=== PATIENT | female | born 1990 | race Caucasian/White ===

== ENCOUNTER 2016-05-19 09:57 | Outpatient (CLI) | payer MEDICAID | END 2016-05-19 23:59 | DX: R63.5 Abnormal weight gain (principal) ==

== ENCOUNTER 2016-06-07 | Outpatient (CLI) | payer MEDICAID | END 2016-06-07 07:26 | disposition critical access hospital (66) | DX: M54.5 Low back pain (principal) | CPT/HCPCS: A0425; A0427 ==

== ENCOUNTER 2016-06-07 08:03 | Emergency (ER) | payer MEDICAID ==
[2016-06-07] MEDS ORDERED: LIDOCAINE PATCH 5% TOP STA (08:19)
[2016-06-07] MEDS ORDERED: CYCLOBENZAPRINE 10 MG TABLET PO STA (08:19)
[2016-06-07] MEDS ORDERED: KETOROLAC 60 MG/2 ML VIAL IVP STA (08:19)
[2016-06-07] MEDS ORDERED: LIDOCAINE PATCH 5% TOP ONE (08:21)
[2016-06-07] MEDS ORDERED: CYCLOBENZAPRINE 10 MG TABLET PO ONE (08:21)
[2016-06-07] MEDS ORDERED: KETOROLAC 30 MG/ML VIAL ONE (08:21)
== END 2016-06-07 10:23 | disposition home or self-care (01) ==
DX: M54.5 Low back pain (principal)
CPT/HCPCS: 96374; 99284; A9270

== ENCOUNTER 2018-08-09 18:54 | Outpatient (CLI) | payer MEDICAID | END 2018-08-09 18:55 | disposition short-term general hospital (02) | LOC: EMS 18:54 | PROVIDERS: ATTEND Surgery | DX: R07.9 Chest pain, unspecified (principal); H53.9 Unspecified visual disturbance; R73.09 Other abnormal glucose | CPT/HCPCS: A0425; A0427; A0999 ==

== ENCOUNTER 2018-08-29 19:52 | Emergency (ER) | payer MEDICAID ==
--- NOTE | 2018-08-29 20:26 | ED Physician Documentation ---
History of Present Illness - Stated complaint Stated Complaint: LT KNEE INJURY - Chief complaint Chief Complaint: Trauma Ext - History obtained from History obtained from: Patient - History of Present Illness Timing: Prior to arrival - Additonal information Additional information: Patient is a previously healthy 27-year-old female presenting with isolated left knee pain after doing gymnastics with her children prior to arrival. Patient reports that she did a backwards cartwheel and while her legs were in the area she felt a pop and pain to the left knee. Patient also reports swelling to this area. Patient denies hearing a pop or feeling pain with her legs planted prior to the activity. Patient also denies significant twisting motion. However, patient was unable to bear weight following this episode. She denies other areas of pain to the leg as well as any change in sensation, strength, range of motion to the left lower extremity except for flexion of the left knee. No other injuries. No other improving or worsening factors noted. 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 - Present Medications Home Medications: Ambulatory Orders Medication Instructions Recorded Confirmed No Known Home Medications 08/29/18 08/29/18 - Allergies Allergies/Adverse Reactions: Allergies Allergy/AdvReac Type Severity Reaction Status Date / Time No Known Drug Allergies Allergy Verified 08/29/18 20:01 - Social History Does the pt smoke?: No Smoking Status: Never smoker - Immunizations Immunizations are current?: Yes PD ED PE NORMAL - Vitals Vital signs reviewed: Yes - General General: Alert and oriented X 3, No acute distress, Well developed/nourished - HEENT HEENT: Atraumatic - Cardiac Cardiac: Strong equal pulses (Cap refill brisk) - Respiratory Respiratory: No respiratory distress - Derm Derm: Normal color, Warm and dry, No rash - Extremities Extremities: No deformity, No tenderness to palpate (Pain with palpation diffusely over anterior left knee with no significant laxity felt on varus/valgus strain or anterior/posterior drawer test. Patella appropriately aligned.No other bony tenderness or abnormalities noted to left lower extremity throughout.), Other (Faintly appreciable swelling to the left knee as compared to the right). No: Normal ROM s pain (Limited left knee flexion given pain.) - Neuro Neuro: No motor deficit, No sensory deficit - Psych Psych: Normal mood, Normal affect Results - Vitals Vitals: Vital Signs - 24 hr 08/29/18 08/29/18 19:59 21:23 Temperature 35.9 C L 36.5 C Heart Rate 93 81 Respiratory 14 16 Rate Blood Pressure 122/79 129/82 H O2 Saturation 100 100 Oxygen O2 Source Room air PD MEDICAL DECISION MAKING - ED course Complexity details: reviewed results, re-evaluated patient, considered differential, d/w patient ED course: Patient presenting with isolated left knee pain and minimal joint swelling after low impact trauma from doing gymnastics.Have lower suspicion for fracture or dislocation based on exam and mechanism. However, will obtain x-rays to further evaluate. Additionally, have lower suspicion for meniscus or ligamentous injury given lack of twisting motion or laxity found on exam. However, if patient still has significant concern for such, can treat clinically with knee immobilizer, nonweightbearing status, crutches, and orthopedic follow-up. Given traumatic mechanism and physical exam findings also have lower suspicion for joint infection. Do not find evidence of overlying cellulitis, laceration, abrasion, or ecchymosis. Have low suspicion for bursitis. Feel most likely muscular skeletal injury or strain/sprain which could be treated supportively.Patient requested pain medication and Toradol provided. X-rays returned unremarkable without effusion, dislocation, or fracture. Discussed results and recommendations with patient at this time feel supportive cares are most appropriate, but also advised her if symptoms persist to follow-up with her primary care physician or orthopedic surgery for further evaluation. Departure - Departure Disposition: 01 Home, Self Care Clinical Impression: Knee injury Qualifiers: Encounter type: initial encounter Laterality: left Qualified Code(s): S89.92XA - Unspecified injury of left lower leg, initial encounter Condition: Good Instructions: ED Sprain Knee Follow-Up: SONIA BAXTER MD [Primary Care Provider] - Within 3 Days Comments: Recommend avoidance of strenuous exercise until all symptoms have resolved. May use elevation, ice, ibuprofen/Tylenol to help reduce swelling and pain. Follow- up with primary care physician in the next 2 to 3 days and return to ED sooner if experience new injury, worsening symptoms, or other concerns.
[2018-08-29] MEDS ORDERED: KETOROLAC 60 MG/2 ML VIAL IM STA (21:12)
--- NOTE | 2018-08-29 21:18 | XRAY Report ---
Reason: left knee pain after hearing pop while doing cartw Procedure Date: 08/29/2018 Accession Number: [id number] / [id number] Procedure: XR - Knee 4 View LT CPT Code: FULL RESULT: EXAM: LEFT KNEE RADIOGRAPHY EXAM DATE: 08/29/2018 08:43 PM. CLINICAL HISTORY: Left knee pain after hearing pop while doing cartwheel. COMPARISON: None available. TECHNIQUE: 4 views. FINDINGS: Bones: No acute fracture or dislocation. Joints: No joint effusion. Joint spaces are preserved. Soft Tissues: Normal. No soft tissue swelling. IMPRESSION: Normal knee radiography. [facility]
[2018-08-29 21:24] VITALS: BP 129/82
== END 2018-08-29 21:41 | disposition home or self-care (01) ==
LOC: ED 19:52
DX: S89.92XA Unspecified injury of left lower leg, initial encounter (principal); X50.9XXA Other and unspecified overexertion or strenuous movements or postures, initial encounter; Y93.43 Activity, gymnastics
CPT/HCPCS: 96372; 99282; 99283

== ENCOUNTER 2018-12-18 04:25 | Outpatient (CLI) | payer MEDICAID | END 2018-12-18 04:26 | disposition critical access hospital (66) | LOC: EMS 04:25 | PROVIDERS: ATTEND Surgery | DX: R10.32 Left lower quadrant pain (principal); R11.2 Nausea with vomiting, unspecified | CPT/HCPCS: A0425; A0427; A0999 ==

== ENCOUNTER 2018-12-18 04:51 | Emergency (ER) | payer MEDICAID ==
--- NOTE | 2018-12-18 04:51 | ED Physician Documentation ---
PD HPI ABD PAIN - Stated complaint Stated Complaint: FLANK/GROIN PAIN - History obtained from History obtained from: Patient, EMS - History of Present Illness Timing - onset: Enter time (02:00), Today Timing - details: Abrupt onset Pain level max: 8 Pain level now: 8 Quality: Pain Location: LLQ Radiation: Left flank Improved by: Other (no ameliorating factors) Worsened by: Other (no exacerbating factors) Associated symptoms: Nausea. No: Fever, Vomiting, Diarrhea, Constipation Similar symptoms before: Diagnosis (similar to previous renal colic) Recently seen: Not recently seen - Additional information Additional information: BIBA for left flank pain that woke her from sleep 2 AM this morning, waxing and waning. Received 50 micrograms fentanyl with repeat x 1 (total of 100 micrograms) by medics with initial improvement, although on ED arrival she reports her pain is back to 8/10 (the level she initially reported to EMS). Also given 4mg IV zofran for nausea Review of Systems Constitutional: denies: Fever, Chills, Sweats GI: reports: Abdominal Pain, Nausea. 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 - Present Medications Home Medications: Ambulatory Orders Medication Instructions Recorded Confirmed Ondansetron Odt [Zofran] 4 mg TL Q6H PRN #10 tablet 12/18/18 Oxycodone HCl/Acetaminophen 1 - 2 each PO Q6H PRN #14 tablet 12/18/18 [Percocet 5-325 mg Tablet] Tamsulosin [Flomax] 0.4 mg PO DAILY #7 capsule 12/18/18 - Allergies Allergies/Adverse Reactions: Allergies Allergy/AdvReac Type Severity Reaction Status Date / Time No Known Drug Allergies Allergy Verified 08/29/18 20:01 - Living Situation Living Arrangement: reports: At home PD ED PE NORMAL - Vitals Vital signs reviewed: Yes - General General: Alert and oriented X 3, No acute distress, Well developed/nourished - HEENT HEENT: Moist mucous membranes - Cardiac Cardiac: RRR, No murmur - Respiratory Respiratory: No respiratory distress, Clear bilaterally - Abdomen Abdomen: Soft, Non tender - Back Back: No CVA TTP - Derm Derm: Normal color, Warm and dry, No rash Results - Vitals Vitals: Vital Signs - 24 hr 12/18/18 12/18/18 12/18/18 04:53 04:56 06:53 Temperature 36.3 C L 36.3 C L Heart Rate 70 63 71 Respiratory 16 16 15 Rate Blood Pressure 103/69 103/69 117/84 H O2 Saturation 99 100 99 12/18/18 07:31 Temperature Heart Rate 72 Respiratory 20 Rate Blood Pressure 108/67 O2 Saturation 98 Oxygen O2 Source Room air - Labs Labs: Laboratory Tests 12/18/18 12/18/18 12/18/18 05:15 06:20 06:20 WBC 9.9 RBC 4.52 Hgb 13.7 Hct 40.8 MCV 90.3 MCH 30.3 MCHC 33.6 RDW 13.2 Plt Count 193 MPV 11.8 H Neut # (Auto) 8.3 H Lymph # (Auto) 1.1 L [place] # (Auto) 0.4 Eos # (Auto) 0.0 Baso # (Auto) 0.1 Absolute Nucleated RBC 0.00 Nucleated RBC % 0.0 Sodium 142 Potassium 4.2 Chloride 111 Carbon Dioxide 24 Anion Gap 7.0 BUN 21 H Creatinine 0.9 Estimated GFR (MDRD) 74 L Glucose 99 Calcium 8.7 Total Bilirubin 0.2 AST 14 ALT 16 Alkaline Phosphatase 23 L Total Protein 6.8 Albumin 4.1 Globulin 2.7 Albumin/Globulin Ratio 1.5 Lipase 21 L Urine Color YELLOW Urine Clarity CLEAR Urine pH 6.0 Ur Specific [place] >=1.030 H Urine Protein NEGATIVE Urine Glucose (UA) NEGATIVE Urine Ketones 15 H Urine Occult Blood LARGE H Urine Nitrite NEGATIVE Urine Bilirubin NEGATIVE Urine Urobilinogen 0.2 (NORMAL) Ur Leukocyte Esterase TRACE H Urine RBC 11-25 H Urine WBC 4-5 Ur Squamous Epith Cells FEW Squamous Urine Bacteria Many H Ur Microscopic Review INDICATED Urine Culture Comments INDICATED Urine HCG, Qual NEGATIVE - Rads (name of study) CT A/P Radiology: Prelim report reviewed, See rad report PD MEDICAL DECISION MAKING - ED course Complexity details: reviewed old records (records faxed from [facility] ED visits), reviewed results, re-evaluated patient, considered differential, d/w patient Departure - Departure Disposition: 01 Home, Self Care Clinical Impression: Renal colic Condition: Good Instructions: ED Stone Renal W Colic Follow-Up: SONIA BAXTER MD [Primary Care Provider] - Prescriptions: Ondansetron Odt [Zofran] 4 mg TL Q6H PRN #10 tablet PRN Reason: Nausea / Vomiting Oxycodone HCl/Acetaminophen [Percocet 5-325 mg Tablet] 1 - 2 each PO Q6H PRN #14 tablet PRN Reason: pain Tamsulosin [Flomax] 0.4 mg PO DAILY #7 capsule Discharge Date/Time: 12/18/18 07:33
[2018-12-18] MEDS ORDERED: KETOROLAC 30 MG/ML VIAL IVP STA (05:04)
[2018-12-18 05:27] LABS: BILIRUBIN,URINE NEGATIVE (NEGATIVE); CLARITY,URINE CLEAR (CLEAR); GLUCOSE, URINE (UA) NEGATIVE (NEGATIVE); KETONES,URINE (UA) 15 mg/dL (NEGATIVE); LEUKOCYTE ESTERASE, URINE TRACE (NEGATIVE); NITRITE,URINE NEGATIVE (NEGATIVE); OCCULT BLOOD,URINE LARGE (NEGATIVE); PROTEIN,URINE NEGATIVE (NEGATIVE); UROBILINOGEN,URINE 0.2 (NORMAL) E.U./dL (NORMAL)
[2018-12-18 05:39] LABS: HCG UR QUAL NEGATIVE; SQUAMOUS EPITHELIAL CELL,UR FEW Squamous (<= Few)
[2018-12-18] MEDS ORDERED: HYDROmorphone 1 MG/ML CARPUJECT IVP STA ×2 (05:39→06:26)
[2018-12-18 05:40] LABS: BACTERIA,URINE Many /HPF (None Seen)
[2018-12-18] MEDS ORDERED: ONDANSETRON 4 MG/2 ML VIAL IVP STA (06:00)
--- NOTE | 2018-12-18 06:10 | CT Report ---
Reason: left flank pain Procedure Date: 12/18/2018 Accession Number: [id number] / [id number] Procedure: CT - Abdomen/Pelvis WO CPT Code: FULL RESULT: EXAM: CT ABDOMEN AND PELVIS (CT KUB) EXAM DATE: 12/18/2018 05:34 AM. CLINICAL HISTORY: Left flank pain. COMPARISONS: None. TECHNIQUE: Routine axial helical CT imaging was performed through the abdomen and pelvis without IV contrast. Reconstructions: Coronal and sagittal. In accordance with CT protocol optimization, one or more of the following dose reduction techniques were utilized for this exam: automated exposure control, adjustment of mA and/or KV based on patient size, or use of iterative reconstructive technique. FINDINGS: Lung Bases: Unremarkable. Right Kidney/Ureter: No stones, hydronephrosis, or hydroureter. No perinephric fat stranding. Left Kidney/Ureter: The left kidney is slightly edematous and there is left-sided hydronephrosis. There is a partially obstructing small 2 mm calculus at the left ureterovesical junction. Other Solid Organs: Noncontrast images of the solid organs are grossly unremarkable. The appendix is normal. There are no inflammatory changes of the colon. Gallbladder/Bile Ducts: Unremarkable. Peritoneal Cavity: No free fluid, free air or rolf adenopathy. Bowel is grossly unremarkable. Pelvic Organs: No bladder stones or wall thickening. Noncontrast images of the visualized pelvic organs are unremarkable. Vasculature: Unremarkable. Other: None. IMPRESSION: 1. Tiny 2 mm partially obstructing calculus at the left ureterovesical junction. RADIA
[2018-12-18] MEDS ORDERED: TAMSULOSIN 0.4 MG CAPSULE PO STA (06:26)
[2018-12-18 06:27] LABS: BASOPHILS # (AUTO) 0.1 10^3/uL (0.0-0.1); BASOPHILS % (AUTO) 0.6 %; EOSINOPHILS % (AUTO) 0.3 %; HGB - HEMOGLOBIN 13.7 g/dL (12.0-16.0); LYMPHOCYTES # (AUTO) 1.1 10^3/uL (1.5-3.5); LYMPHOCYTES % (AUTO) 11.1 %; MEAN CORPUSCULAR HEMOGLOBIN 30.3 pg (27.0-31.0); MEAN CORPUSCULAR HGB CONC 33.6 g/dL (32.0-36.0); MEAN CORPUSCULAR VOLUME 90.3 fL (81.0-99.0); MEAN PLATELET VOLUME 11.8 fL (7.9-10.8); MONOCYTES # (AUTO) 0.4 10^3/uL (0.0-1.0); MONOCYTES % (AUTO) 3.8 %; NEUTROPHILS # (AUTO) 8.3 10^3/uL (1.5-6.6); NEUTROPHILS % (AUTO) 83.8 %; PLT - PLATELET COUNT 193 10^3/uL (130-450); RED BLOOD COUNT 4.52 10^6/uL (4.20-5.40); RED CELL DISTRIBUTION WIDTH 13.2 % (12.0-15.0); WHITE BLOOD COUNT 9.9 x10^3/uL (4.8-10.8)
[2018-12-18 06:38] LABS: ALBUMIN 4.1 g/dL (3.2-5.5); ALBUMIN/GLOBULIN RATIO 1.5 (1.0-2.2); BILIRUBIN,TOTAL 0.2 mg/dL (0.2-1.0); CALCIUM 8.7 mg/dL (8.5-10.3); CREATININE 0.9 mg/dL (0.4-1.0); TOTAL PROTEIN 6.8 g/dL (6.7-8.2)
[2018-12-18 07:33] VITALS: BP 108/67
== END 2018-12-18 07:33 | disposition home or self-care (01) ==
LOC: EDUNIT# → ED 04:51
DX: N20.0 Calculus of kidney (principal); Z87.442 Personal history of urinary calculi
CPT/HCPCS: 36415; 74176; 80053; 81001; 81025; 83690; 85025; 87086; 96374; 96375; 96376; 99284; A9270; J1170; 81003

== ENCOUNTER 2019-03-28 18:12 | Outpatient (CLI) | payer BC, MEDICAID | END 2019-03-28 18:13 | disposition EMS.NT | LOC: EMS 18:12 | PROVIDERS: ATTEND Surgery | DX: H57.11 Ocular pain, right eye (principal); Y04.2XXA Assault by strike against or bumped into by another person, initial encounter; Y92.009 Unspecified place in unspecified non-institutional (private) residence as the place of occurrence of the external cause ==

== ENCOUNTER 2019-09-21 12:46 | Outpatient (CLI) | payer MEDICAID | END 2019-09-21 23:59 | disposition short-term general hospital (02) | LOC: EMS 12:46 | PROVIDERS: ATTEND Surgery | DX: R10.11 Right upper quadrant pain (principal) | CPT/HCPCS: A0425; A0427; A0999 ==

== ENCOUNTER 2019-09-27 23:10 | Outpatient (CLI) | payer MEDICAID | END 2019-09-27 23:11 | disposition EMS.NT | LOC: EMS 23:10 | PROVIDERS: ATTEND Surgery | DX: R10.9 Unspecified abdominal pain (principal); R11.0 Nausea ==